=== PATIENT | female | born 1950 | race Caucasian/White ===

== ENCOUNTER 2018-01-07 09:38 | Emergency (ER) | payer MEDICARE, BC | END 2018-01-07 10:35 | disposition home or self-care (01) | LOC: MADERS 09:38 | DX: H00.011 Hordeolum externum right upper eyelid (principal); H00.012 Hordeolum externum right lower eyelid; E11.9 Type 2 diabetes mellitus without complications; Z79.899 Other long term (current) drug therapy; Z79.84 Long term (current) use of oral hypoglycemic drugs | CPT/HCPCS: 99282 ==